=== PATIENT | male | born 1945 | race Caucasian/White ===

== ENCOUNTER 2021-02-20 09:42 | Day surgery (SDC) | payer OTHER ==
[2021-02-15 11:11] LABS: BASOPHILS # (AUTO) 0.1 X10'3 (0-0.2); BASOPHILS % (AUTO) 0.9 % (0-1); EOSINOPHILS # (AUTO) 0.1 X10'3 (0-0.9); EOSINOPHILS % (AUTO) 2.2 % (0-6); LYMPHOCYTES # (AUTO) 0.8 X10'3 (1.1-4.8); LYMPHOCYTES % (AUTO) 12.5 % (21-51); MEAN CORPUSCULAR HEMOGLOBIN 29.9 PG (27.0-31.0); MEAN CORPUSCULAR VOLUME 90.5 FL (78-98); MEAN PLATELET VOLUME 8.7 FL (7.4-10.4); MONOCYTES # (AUTO) 0.5 X10'3 (0-0.9); MONOCYTES % (AUTO) 8.5 % (2-12); NEUTROPHILS # (AUTO) 4.8 X10'3 (1.8-7.7); NEUTROPHILS % (AUTO) 75.9 % (42-75); PRE OP HEMATOCRIT 43.7 % (42.0-52.0); PRE OP HEMOGLOBIN 14.4 g/dL (14.0-17.9); PRE OP PLATELET COUNT 276 X10'3 (140-440); RED BLOOD COUNT 4.83 X10'6 (4.70-6.10); RED CELL DISTRIBUTION WIDTH 13.9 % (11.5-14.5)
[2021-02-15 11:24] LABS: ALBUMIN 3.8 G/DL (3.4-5.0); ALBUMIN/GLOBULIN RATIO 1.3 (1.1-1.5); ALKALINE PHOSPHATASE 62 IU/L (46-116); BLOOD UREA NITROGEN 10 MG/DL (7-18); BUN/CREATININE RATIO 12.2 (5.4-32.0); CALCIUM 8.6 MG/DL (8.5-10.1); CHLORIDE 106 MMOL/L (99-107); CREATININE 0.82 MG/DL (0.60-1.10); PRE OP ALT 35 U/L (30-65); PRE OP ANION GAP 8 (8-16); PRE OP AST 42 U/L (10-37); PRE OP BILIRUB, TOTAL 0.4 MG/DL (0.0-1.0); PRE OP GLUCOSE 93 MG/DL (70-104); PRE OP POTASSIUM 4.1 MMOL/L (3.4-5.1); PRE OP SODIUM 141 MMOL/L (135-145); TOTAL CARBON DIOXIDE 27.1 MMOL/L (24-32); TOTAL PROTEIN 6.7 G/DL (6.4-8.2); eGFR > 90 ML/MIN
[~2021-02-20] VITALS: Ht 188 cm; Wt 108.9 kg
[2021-02-20] VITALS (18 sets, daily range): BP systolic 147–174; BP diastolic 82–98
[~2021-02-20 09:42] MED LIST: AREDS2 PO; ASPI-12 PO; CETI10TA18 PO; DILT60TA41 PO; FLUO15OI15 TOP; HYDR-3686 PO; INDOCYANINE GREEN 25 MG/10 ML VIAL IV ONE; KETO120S5 TP; MIRT-116 PO; PRIM50TA27 PO; TEMA30CA PO; [UNRECOGNIZED DRUG - CODE] PO; cefazolin/dext.iso 2gm/100ml IV ONE; famotidine 20mg tablet PO ONE; ringers solution, lacted 1,000 ML IV SCH
[2021-02-20] MEDS ORDERED: LIDOcaine 1% 30ml preserv. free vial ONE (12:19)
[2021-02-20] MEDS ORDERED: BUPIVAcaine/PF 2.5mg/ml (0.25%) 10ml vial ONE (12:19)
[2021-02-20] MEDS ORDERED: midazolam 1 mg/ML 2ml injection ONE (12:23)
[2021-02-20] MEDS ORDERED: fentaNYL /PF 50mcg/ml 5ml ampule ONE (12:23)
[2021-02-20] MEDS ORDERED: dexamethasone sod phosphate 10mg/ml inj ONE (12:42)
[2021-02-20] MEDS ORDERED: sevoflurane 250ml liquid IH ONE (12:42)
[2021-02-20] MEDS ORDERED: propofol inj 20 ML IV ONE (12:48)
[2021-02-20] MEDS ORDERED: LIDOcaine 2% (20mg/ml) 5ml vial ONE (12:48)
[2021-02-20] MEDS ORDERED: rocuronium 10mg/ml inj IV ONE (12:49)
[2021-02-20] MEDS ORDERED: ondansetron/PF 4mg/2ml inj ONE (12:56)
[2021-02-20] MEDS ORDERED: morphine 2 MG/ML inj. syringe IV PRN (13:55)
[2021-02-20] MEDS ORDERED: proCHLORperazine 10 MG/2 ml inj IV PRN (13:55)
[2021-02-20] MEDS ORDERED: ondansetron/PF 4mg/2ml inj IV PRN (13:55)
[2021-02-20] MEDS ORDERED: morphine 4 MG/ML inj SYRINge IV PRN (13:55)
[2021-02-20] MEDS ORDERED: ringers solution, lacted 1,000 ML IV SCH (13:55)
[2021-02-20] MEDS ORDERED: meperidine/PF 25mg/ml syringe IV PRN ×2 (13:55)
[2021-02-20] MEDS ORDERED: acetaminophen 1,000mg/100ml IV 100 ML IV ONE (15:00)
[2021-02-20] MEDS ORDERED: HYDROcodone/acetaminophen 5mg/325mg tablet PO PRN (15:15)
--- NOTE | 2021-02-20 15:17 | NUR ---
Received from OR via PB, accompanied by Anesthesiologist DR TAYLOR and report given by Anesthesiologist. PT DROWSY, DENIES PAIN, ABDOMEN W/5 LAP SITES W/BANDAIDS CDI. Addendum: 02/20/21 at 1553 by Chacha Marsh RN Amended: Links added.
[2021-02-20] MEDS: meperidine/PF 25mg/ml syringe IV PRN ×2 (15:41→15:47)
[2021-02-20] MEDS: HYDROcodone/acetaminophen 5mg/325mg tablet PO PRN ×2 (16:46→17:23)
[2021-02-20] MEDS ORDERED: LIDOcaine 2% 10ml TOPICAL JELLY (Urojet) MM ONE (18:15)
--- NOTE | 2021-02-20 18:47 | NUR ---
BLADDER SCANNED PT FOR 740 ML, ORDERS TO STRAIGHT CATH PT PER DR FLORES, STRAIGHT CATH DONE AT BEDSIDE W/ASEPTIC TECHNIQUE, 930 ML RETURN, BLADDER SCANNED POST CATH W/43 ML LEFT IN BLADDER, INSTRUCTED PT TO RETURN TO ER IF UNABLE TO VOID IN 6-8 HOURS. PT VERBALIZED UNDERSTANDING, D/C INSTRUCTIONS GIVEN AND GONE OVER W/PT WHO VERBALIZED UNDERSTANDING. PT D/CD TO HOME VIA W/C TO PRIVATE VEHICLE W/O INCIDENT. Addendum: 02/20/21 at 1931 by Chacha Marsh RN Amended: Links added.
== END 2021-02-20 18:47 | disposition home or self-care (01) ==
LOC: PAS 09:42
PROVIDERS: ATTEND Surgery
DX: K43.9 Ventral hernia without obstruction or gangrene (principal); K80.12 Calculus of gallbladder with acute and chronic cholecystitis without obstruction; F43.10 Post-traumatic stress disorder, unspecified; I10 Essential (primary) hypertension; Z79.899 Other long term (current) drug therapy; Z98.890 Other specified postprocedural states
CPT/HCPCS: 36415; 47563; 49561; 80053; 82948; 85025; 93005; J0131; J1100; J2001; J2175; J2250; J2270; J2405; J2704; J3010; J3490; J7120; Z7506; Z7508; Z7512; A4215; A4618; A7000

== ENCOUNTER 2021-04-17 08:59 | Day surgery (SDC) | payer OTHER ==
[2021-04-17] VITALS (11 sets, daily range): BP systolic 127–164; BP diastolic 74–98
[~2021-04-17] VITALS: Ht 188 cm; Wt 109.2 kg
[~2021-04-17 08:59] MED LIST changes: -INDOCYANINE GREEN 25 MG/10 ML VIAL IV ONE; -cefazolin/dext.iso 2gm/100ml IV ONE; -famotidine 20mg tablet PO ONE; +iohexol 300 MG/1 ML 50ml polymer ONE; -ringers solution, lacted 1,000 ML IV SCH
[2021-04-17] MEDS ORDERED: LIDOcaine Viscous 15ml cup ONE (10:23)
[2021-04-17] MEDS ORDERED: levoFLOXACIN-Levaquin 500mg/D5 100 ML IV ONE (10:23)
[2021-04-17] MEDS ORDERED: fentaNYL/PF 50MCG/1 ML 2ML syringe ONE (10:23)
[2021-04-17] MEDS ORDERED: MIDAZolam 1 MG/ML 5ML VIAL ONE (10:23)
[2021-04-17] MEDS ORDERED: glucagon, human recombinant 1mg kit ONE (10:23)
== END 2021-04-17 13:35 | disposition home or self-care (01) ==
LOC: GI LAB 08:59
PROVIDERS: ATTEND Internal Medicine Gastroenterology
DX: Z46.59 Encounter for fitting and adjustment of other gastrointestinal appliance and device (principal); K83.8 Other specified diseases of biliary tract; I10 Essential (primary) hypertension; F43.10 Post-traumatic stress disorder, unspecified; Z79.899 Other long term (current) drug therapy
CPT/HCPCS: 43264; 43275; 74328; C1769; C1773; G0500; J1610; J1956; J2250; J3010; J7040; Q9967; Z7512; Z7610; 99152; 99153; A4620

== ENCOUNTER 2022-05-23 12:46 | Day surgery (SDC) | payer OTHER ==
[2022-05-14 16:36] LABS: BASOPHILS % (AUTO) 0.6 % (0-1); EOSINOPHILS # (AUTO) 0.4 X10'3 (0-0.9); EOSINOPHILS % (AUTO) 5.5 % (0-6); LYMPHOCYTES # (AUTO) 1.1 X10'3 (1.1-4.8); LYMPHOCYTES % (AUTO) 15.1 % (21-51); MEAN CORPUSCULAR HEMOGLOBIN 29.5 PG (27.0-31.0); MEAN CORPUSCULAR VOLUME 89.3 FL (78-98); MEAN PLATELET VOLUME 8.3 FL (7.4-10.4); MONOCYTES # (AUTO) 0.6 X10'3 (0-0.9); MONOCYTES % (AUTO) 8.2 % (2-12); NEUTROPHILS # (AUTO) 5.1 X10'3 (1.8-7.7); NEUTROPHILS % (AUTO) 70.6 % (42-75); PRE OP HEMATOCRIT 46.7 % (42.0-52.0); PRE OP HEMOGLOBIN 15.4 g/dL (14.0-17.9); PRE OP PLATELET COUNT 309 X10'3 (140-440); RED BLOOD COUNT 5.23 X10'6 (4.70-6.10); RED CELL DISTRIBUTION WIDTH 13.5 % (11.5-14.5)
[2022-05-14 17:00] LABS: ALBUMIN/GLOBULIN RATIO 1.3 (1.1-1.5); ALKALINE PHOSPHATASE 77 IU/L (46-116); BLOOD UREA NITROGEN 8 MG/DL (7-18); BUN/CREATININE RATIO 9.6 (5.4-32.0); CALCIUM 8.7 MG/DL (8.5-10.1); CHLORIDE 103 MMOL/L (99-107); CREATININE 0.83 MG/DL (0.60-1.10); PRE OP ALT 23 U/L (30-65); PRE OP ANION GAP 7 (8-16); PRE OP AST 20 U/L (10-37); PRE OP BILIRUB, TOTAL 0.3 MG/DL (0.0-1.0); PRE OP GLUCOSE 87 MG/DL (70-104); PRE OP POTASSIUM 4.1 MMOL/L (3.4-5.1); PRE OP SODIUM 136 MMOL/L (135-145); TOTAL CARBON DIOXIDE 25.8 MMOL/L (24-32); eGFR 90 ML/MIN
[~2022-05-23] VITALS: Ht 172.7 cm; Wt 64.4 kg
[2022-05-23] VITALS (9 sets, daily range): BP systolic 134–154; BP diastolic 82–98
[~2022-05-23 12:46] MED LIST changes: -ASPI-12 PO; -CETI10TA18 PO; +CETI10TA19 PO; +DIPH25CA83 PO; +DUPI200S; +IBUP-2801 PO; -KETO120S5 TP; +LOPE2TAB25 PO; -MIRT-116 PO; +TADA10TA14 PO; -[UNRECOGNIZED DRUG - CODE] PO; +ceFAZolin inj. 2,000 MG in dextrose 5%-water 100 ML IV ONE; +famotidine 20mg tablet PO ONE; -iohexol 300 MG/1 ML 50ml polymer ONE; +ringers solution, lacted 1,000 ML IV SCH
[2022-05-23] MEDS ORDERED: BUPIVAcaine/PF 2.5 mg/ml (0.25%) 30ml vial ONE ×2 (14:26→14:29)
[2022-05-23] MEDS ORDERED: LIDOcaine 1% 30ml preserv. free vial ONE (14:26)
[2022-05-23] MEDS ORDERED: BUPIVACAINE liposomal/PF 13.3 MG/ML vial IM ONE (14:29)
[2022-05-23] MEDS ORDERED: fentaNYL /PF 50mcg/ml 5ml ampule ONE (16:20)
[2022-05-23] MEDS ORDERED: neostigmine methylsulfate 1 MG/ML 10ml vial ONE (17:03)
[2022-05-23] MEDS ORDERED: glycopyrrolate 0.2mg/ml inj ONE (17:03)
[2022-05-23] MEDS ORDERED: dexamethasone sod phosphate 4mg/ml inj. ONE (17:03)
[2022-05-23] MEDS ORDERED: ePHEDrine 50MG/ML INJ. ONE (17:03)
[2022-05-23] MEDS ORDERED: LIDOcaine 2% (20mg/ml) 5ml vial ONE (17:03)
[2022-05-23] MEDS ORDERED: rocuronium 10mg/ml inj IV ONE (17:03)
[2022-05-23] MEDS ORDERED: propofol inj 20 ML IV ONE (17:03)
[2022-05-23] MEDS ORDERED: ondansetron/PF 4mg/2ml inj ONE (17:03)
[2022-05-23] MEDS ORDERED: oxyCODONE/APAP 5-325mg tablet PO PRN (17:30)
--- NOTE | 2022-05-23 17:32 | NUR ---
Received from OR via PB, accompanied by Anesthesiologist and report given by Anesthesiolgist HERMES. PT ARRIVES AWAKE AND DROWSY, RESPONSIVE TO VERBAL STIMULI AND RESPONDING APPROPRIETLY. PT DENIES PAIN, BAND AIDES TO LUQ CLEAN DRY AND INTACT WITH ABD BINDER IN PLACE. VSS, ON SIMPLE MASK. Addendum: 05/23/22 at 1748 by Krunal Galindo RN Amended: Links added.
[2022-05-23] MEDS ORDERED: ringers solution, lacted 1,000 ML IV SCH (17:40)
[2022-05-23] MEDS ORDERED: morphine 4 MG/ML inj SYRINge IV PRN (17:40)
[2022-05-23] MEDS ORDERED: ondansetron/PF 4mg/2ml inj IV PRN (17:40)
[2022-05-23] MEDS ORDERED: morphine 2 MG/ML inj. syringe IV PRN (17:40)
[2022-05-23] MEDS ORDERED: HYDROmorphone/PF 0.2 MG/ML SYRINGE IV PRN ×2 (17:40)
== END 2022-05-23 18:29 | disposition home or self-care (01) ==
LOC: PAS 12:46
PROVIDERS: ATTEND Surgery
DX: K43.2 Incisional hernia without obstruction or gangrene (principal); I10 Essential (primary) hypertension; F43.10 Post-traumatic stress disorder, unspecified; Z79.899 Other long term (current) drug therapy; Z98.890 Other specified postprocedural states; Z90.49 Acquired absence of other specified parts of digestive tract; Z83.3 Family history of diabetes mellitus
CPT/HCPCS: 36415; 49654; 64488; 80053; 82948; 85025; 93005; C1781; C9290; J0690; J1100; J2405; J2704; J2710; J3010; J3490; J7030; J7060; J7120; Z7506; Z7508; Z7512; A4215; A4618